=== PATIENT | female | born 1970 | race Caucasian/White ===

== ENCOUNTER → 2023-12-31 08:49 | Outpatient (REF) | payer OTHER, SELFPAY | LOC: WDC 08:49 | PROVIDERS: ATTENDING PHYSICIAN Nurse Practitioner Obstetrics & Gynecology; FAMILY PHYSICIAN Physician Assistant Medical | DX: N63.25 Unspecified lump in the left breast, overlapping quadrants (principal) | CPT/HCPCS: 76642; 77062; 77066 ==

== ENCOUNTER → 2024-01-13 07:28 | Outpatient (REF) | payer OTHER, SELFPAY | LOC: HWRAD 07:28 | PROVIDERS: ATTENDING PHYSICIAN Nurse Practitioner Obstetrics & Gynecology; FAMILY PHYSICIAN Physician Assistant Medical | DX: N92.0 Excessive and frequent menstruation with regular cycle (principal) | CPT/HCPCS: 76830; 76856 ==

== ENCOUNTER → 2024-02-02 07:11 | Outpatient (REF) | payer OTHER, SELFPAY | LOC: HWRAD 07:11 | PROVIDERS: ATTENDING PHYSICIAN Physician Assistant Medical | DX: Z00.00 Encounter for general adult medical examination without abnormal findings (principal) | CPT/HCPCS: 71046 ==

== ENCOUNTER → 2024-11-01 13:32 | Outpatient (REF) | payer OTHER, SELFPAY | LOC: HWRAD 13:32 | PROVIDERS: ATTENDING PHYSICIAN Physician Assistant Medical | DX: J45.909 Unspecified asthma, uncomplicated (principal) | CPT/HCPCS: 71046 ==

== ENCOUNTER → 2025-01-15 09:06 | Outpatient (REF) | payer OTHER, SELFPAY | LOC: HWRAD 09:06 | PROVIDERS: ATTENDING PHYSICIAN Internal Medicine Pulmonary Disease; FAMILY PHYSICIAN Physician Assistant Medical | DX: J47.9 Bronchiectasis, uncomplicated (principal) | CPT/HCPCS: 71250 ==